=== PATIENT | male | born 1950 | race Caucasian/White ===

== ENCOUNTER → 2020-07-02 | Outpatient (CLI) | payer OTHER | LOC: SJCVC 13:12 | PROVIDERS: ATTEND Internal Medicine | DX: R94.31 Abnormal electrocardiogram [ECG] [EKG] (principal); R07.9 Chest pain, unspecified; I73.9 Peripheral vascular disease, unspecified; I10 Essential (primary) hypertension; E78.5 Hyperlipidemia, unspecified; F17.200 Nicotine dependence, unspecified, uncomplicated ==

== ENCOUNTER → 2020-07-07 | Outpatient (CLI) | payer OTHER | LOC: SJCVCIMAG 13:57 | PROVIDERS: ATTEND Internal Medicine | DX: R06.00 Dyspnea, unspecified (principal); R07.9 Chest pain, unspecified ==

== ENCOUNTER → 2020-07-08 | Outpatient (CLI) | payer OTHER | LOC: SJCVCIMAG 08:06 | PROVIDERS: ATTEND Internal Medicine | DX: I25.10 Atherosclerotic heart disease of native coronary artery without angina pectoris (principal); I77.9 Disorder of arteries and arterioles, unspecified; I73.9 Peripheral vascular disease, unspecified; M79.604 Pain in right leg; M79.605 Pain in left leg; I10 Essential (primary) hypertension; E78.5 Hyperlipidemia, unspecified; F17.210 Nicotine dependence, cigarettes, uncomplicated; Z79.82 Long term (current) use of aspirin; Z79.899 Other long term (current) drug therapy ==

== ENCOUNTER → 2020-07-21 | Outpatient (CLI) | payer OTHER | LOC: SJCVCIMAG 09:25 | PROVIDERS: ATTEND Internal Medicine | DX: I73.9 Peripheral vascular disease, unspecified (principal); M79.604 Pain in right leg; M79.605 Pain in left leg; F17.200 Nicotine dependence, unspecified, uncomplicated ==

== ENCOUNTER 2020-09-01 09:10 | Inpatient (IN) | payer OTHER ==
[~2020-09-01] VITALS: Ht 172.7 cm; Wt 57.3 kg
[2020-09-01 09:59] VITALS: BP 138/79
[2020-09-01 10:01] LABS: HEMATOCRIT 39.4 % (42.0-52.0); HEMOGLOBIN 13.3 gm/dL (14.0-18.0); MCH 33.9 pg (26.0-34.0); MCHC 33.7 g/dL (28.0-37.0); MCV 100.6 fL (80.0-100.0); RBC 3.92 mil/uL (4.50-6.00); RDW 13.5 % (10.5-14.5); WBC 6.6 thou/uL (4.0-11.0)
[2020-09-01 10:04] LABS: CALCIUM 8.8 mg/dL (8.5-10.1); CREATININE 0.9 mg/dL (0.7-1.3); POTASSIUM 4.2 mmol/L (3.5-5.1)
[2020-09-01] MEDS ORDERED: PROAIR HFA8.5 GM INH (10:18)
[2020-09-01] MEDS ORDERED: ASA81BEC PO (10:19)
[2020-09-01] MEDS ORDERED: NORVASC 2.5 MG2.5 M1 PO (10:19)
[2020-09-01] MEDS ORDERED: LIPITOR40 MG PO (10:20)
[2020-09-01] MEDS ORDERED: NORCO 10-325 T1 EACH PO (10:21)
[2020-09-01] MEDS ORDERED: IBUPROFEN 800800 M1 PO (10:22)
[2020-09-01] MEDS ORDERED: DESYREL150 MG PO (10:24)
[2020-09-01] MEDS ORDERED: ANORO ELLIPTA1 EACH INH (10:25)
[2020-09-01] MEDS ORDERED: ISOSORBIDE DINI30 MG PO ×2 (10:28→10:29)
--- NOTE | 2020-09-01 11:27 | EKG ---
[facility] [place] [address] ELECTROCARDIOGRAM REPORT Name: MARC GIFFORD Room #: [facility]#: [id number] Admission: 09/01/20 Attend Phys: Evans Ribeiro Discharge: Date of : 54 Report #: [id number] [facility] Test Date: 2020-09-01 Test Time: 10:31:56 Pat Name: MARC GIFFORD Department: Room: Gender: City Marshal: [place] : 1950 Requested By: Evans Ribeiro Order Number: [id number] MD: Corey Vital Measurements Intervals [place] Rate: 70 P: 74 IL: 129 QRS: 78 QRSD: 83 T: 58 QT: 406 QTc: 439 Interpretive Statements Sinus rhythm Probable left atrial enlargement Borderline low voltage, extremity leads Minimal ST elevation, anterior leads No previous ECG available for comparison Electronically Signed On 09-01-2020 11:27:16 RESTAURANT BUSSER by Corey Vital [email or web address] <ELECTRONICALLY SIGNED> By: Corey Vital MD, [facility] 09/01/20 1127 1031 1031 Corey Vital MD, FACC /EPI
[2020-09-01 14:04] LABS: HEMATOCRIT 36.7 % (42.0-52.0); HEMOGLOBIN 12.5 gm/dL (14.0-18.0); MCH 34.1 pg (26.0-34.0); MCV 100.3 fL (80.0-100.0); RBC 3.66 mil/uL (4.50-6.00); RDW 13.6 % (10.5-14.5); WBC 5.9 thou/uL (4.0-11.0)
[2020-09-01 14:16] LABS: APTT 26.8 Seconds (24.5-32.8); PROTIME 10.4 Seconds (9.3-11.4)
[2020-09-01 15:33] LABS: CALCIUM 8.6 mg/dL (8.5-10.1); CREATININE 0.8 mg/dL (0.7-1.3); POTASSIUM 3.9 mmol/L (3.5-5.1)
[2020-09-01 15:36] LABS: ALBUMIN 3.1 g/dL (3.4-5.0); TOTAL BILIRUBIN 0.3 mg/dL (0.2-1.0); TOTAL PROTEIN 6.7 g/dL (6.4-8.2)
[2020-09-01 15:58] LABS: FOLIC ACID 15.3 ng/mL (8.6-58.9)
--- NOTE | 2020-09-01 16:32 | NUR ---
1620 HEPARIN GTT STARTED AT 6.8ML/HR
[2020-09-01 20:00] VITALS: BP 146/66
[2020-09-01 20:44] VITALS: BP 146/66
[2020-09-01 23:29] LABS: URINE BILIRUBIN NEGATIVE (Negative); URINE BLOOD NEGATIVE (Negative); URINE CLARITY CLEAR; URINE COLOR YELLOW; URINE GLUCOSE-RANDOM* NEGATIVE (Negative); URINE KETONES NEGATIVE (Negative); URINE LEUKOCYTES-REFLEX NEGATIVE (Negative); URINE NITRITE-REFLEX NEGATIVE (Negative); URINE PROTEIN (DIPSTICK) NEGATIVE (Negative); URINE SPECIFIC GRAVITY <= 1.005 (1.005-1.035); URINE UROBILINOGEN 0.2 E.U./dl (0.2-1.0)
[2020-09-02 02:06] LABS: GLYCOHEMOGLOBIN (HGB A1C) 5.2 % (4.8-5.6)
--- NOTE | 2020-09-02 07:44 | EKG ---
[place] [address] [facility] [employer] [place] [address] ELECTROCARDIOGRAM REPORT Name: MARC GIFFORD Room #: 212-P ADM IN M.R.#: [id number] Admission: 09/01/20 Attend Phys: Evans Ribeiro Discharge: Date of : 54 Report #: [id number] [facility] Test Date: 2020-09-02 Test Time: 07:25:43 Pat Name: MARC GIFFORD Department: Room: 212 P Gender: M Early Intervention Specialist: GERRY : 1950 Requested By: Natalia Kraft Order Number: [id number] MD: Enrique Ho Measurements Intervals [place] Rate: 58 P: 75 VT: 124 QRS: 82 QRSD: 91 T: 58 QT: 426 QTc: 419 Interpretive Statements Sinus rhythm Atrial premature complex Borderline right axis deviation Borderline low voltage, extremity leads Poor R wave progression Baseline wander in lead(s) V5 Compared to ECG 09/01/2020 10:31:56 Atrial premature complex(es) now present Electronically Signed On 09-02-2020 7:44:28 GLASS CUTTER by Enrique Ho [email or web address] <ELECTRONICALLY SIGNED> By: Enrique Ho MD, [facility] 09/02/20 0744 4 4 Enrique Ho MD, [facility] /EPI
[2020-09-02 09:31] LABS: CHOLESTEROL 125 mg/dL (<200); HDL CHOLESTEROL 48 mg/dL (>40); LDL CHOLESTEROL 68 mg/dL (<100); TC:HDL 2.6 Ratio (Not establshd); TRIGLYCERIDE 46 mg/dL (<150); VLDL 9 mg/dL (<40)
[2020-09-02 10:15] VITALS: BP 93/59
[2020-09-02 12:00] VITALS: BP 113/75
--- NOTE | 2020-09-02 15:17 | NUR ---
ASSESSMENT: CM REVIEWED CHART AND SPOKE WITH PT. PT IS ALERT AND ORIENTED X4. PT WAS ADMITTED DUE TO CHEST PAIN AND HAD CARDIAC CATH WHICH REVEALED CRITICAL STENOSIS. PT IS SCHEDULED TO HAVE CABG ON 09/06. PT ALSO COMPLAINED OF ITCY RASH X3 WEEKS. PT REPORTS LIVING IN AN APT WITH HIS MOTHER. PT REPORTS NO STEPS TO ENTER OR ONCE INSIDE. PT REPORTS HE IS FULLY INDEPENDENT WITH ADLS AND AMBULATION. PT STATES HE HAS HAD NO HX OF HH OR POST ACUTE CARE. PT REPORTS NO DME AT HOME AND HAS NOT HAD THE NEED FOR IT. PT HAS HX OF ALCOHOL USE AND IS ON CIWA PROTOCOL BUT DENIES THE NEED FOR RESOURCES. PT STATES HIS PCP IS DR. DALLAS RIBERA. CM WILL CONTINUE TO FOLLOW TO ASSIST NEEDED.
--- NOTE | 2020-09-02 16:12 | NUR ---
PT ALERT AND ORIENTED IN AM. PT ON CONTACT PRECAUTIONS FOR SCABIES. PT AGREED TO SHOWER TO PUT MEDICATED OINTMENT ON WOUNDS. PT IS ON HEPARIN DRIP, AND BEGAN HEPARIN DOSING TO PREPARE FOR CABG ON 09/06/2020. PT NIECE BROUGHT HOME MEDS; RECONCILED HOME MEDS. CARDIAC ANGIOGRAPH CONDUCTED. CARDIAC DR REQUESTED BILATERAL BLOOD PRESSURES CONDUCTED TO RECORD TRENDS. POC: CONTINUE TO MONITOR PT'S SKIN 24 HOURS AFTER OINTMENT; MONITOR PT LAB VALUES FOR HEPARIN; PT IS RESTING COMFORTABLY. NO CONCERNS AT THIS TIME.
[2020-09-02 17:00] VITALS: BP 111/76
[2020-09-02 17:05] VITALS: BP 79/54
[2020-09-02 20:18] VITALS: BP 125/61
[2020-09-02 23:08] VITALS: BP 113/66; BP 118/63; BP 83/52
[2020-09-03 05:19] VITALS: BP 81/55
[2020-09-03 05:32] LABS: CALCIUM 8.5 mg/dL (8.5-10.1); CREATININE 0.8 mg/dL (0.7-1.3); MAGNESIUM 1.9 mg/dL (1.8-2.4); POTASSIUM 4.5 mmol/L (3.5-5.1)
[2020-09-03 05:35] LABS: ABSOLUTE NEUTROPHILS 3.5 thou/uL (1.4-8.2); BASOPHILS 0.7 % (0.0-2.0); EOSINOPHILS 6.6 % (0.0-3.0); HEMOGLOBIN 11.8 gm/dL (14.0-18.0); LYMPHOCYTES 32.5 % (24.0-44.0); MCH 34.3 pg (26.0-34.0); MCHC 33.8 g/dL (28.0-37.0); MCV 101.6 fL (80.0-100.0); MONOCYTES 7.8 % (1.0-8.0); PLATELET COUNT 290 thou/uL (150-400); POLYS 52.4 % (36.0-66.0); RBC 3.45 mil/uL (4.50-6.00); RDW 13.7 % (10.5-14.5); WBC 6.6 thou/uL (4.0-11.0)
[2020-09-03 08:05] LABS: PROTIME 10.2 Seconds (9.3-11.4)
--- NOTE | 2020-09-03 08:33 | NUR ---
ASSUMED CARE OF THE PATIENT AT 1900; AOX4/UP AD MEG TO TOILET; CONTACT PRECAUTIONS IN PLACE; C/O OF PAIN AND ITCHINESS MANAGED WITH PRN MEDICATIONS; SR ON THE MONITOR; HEPARIN GTT TITRATED ACCORDING TO PROTOCOL; PLAN IS FOR PATIENT TO CONTINUE CURRENT THERAPY AND ATTEND SCHEDULED CARDIOLOGY PROCEDURE FOR SUNDAY; WILL CONTINUE TO MONITOR AND FOLLOW POC
[2020-09-03 08:57] VITALS: BP 126/63
[2020-09-03 12:38] VITALS: BP 127/64
--- NOTE | 2020-09-03 15:19 | NUR ---
08:00 NPO FOR CAROTID PROCEDURE TODAY. WANTS TO DRINK BUT EXPLAINED HE CAN THIS AFTERNOON. CONSENT SIGNED AND WITNESSED. NO QUESTIONS ON WHAT THEY ARE DOING NOT ANSWERED. HIS ITCHING IS VASTLY IMPROVED POST BATHING AND CREAM RX. SELF AMBULATE SIN HIS ROOM TO RESTROOM. DENIES ANY CP, NO SOB EITHER. STEADY ON AMBULATION.
--- NOTE | 2020-09-03 15:22 | NUR ---
PT. BACK ON UNIT FROM HIS CAROTID INTERVENTION, THEY DID NO INTERVENTION TODAY FROM SUCH. SITE OF INSERTION FOR SUCH, C,D,I. VITAL SIGN'S ARE STABLE AND NO OOZING FROM MYNX SITE.
[2020-09-03 20:00] VITALS: BP 122/59
[2020-09-03 22:51] VITALS: BP 122/59
--- NOTE | 2020-09-04 00:59 | NUR ---
PT AOX4 WITH INTERMITTENT FORGETFULNESS. PT NOTED TO BE IRRITABLE, FUSSY AND DIFFICULT TO REDIRECT. PT REPORTS 6/10 BACK PAIN. PT DENIES SOB WHILE ON ROOM AIR. PT RECEIVING PRN PO NORCO Q4HR. PT ALSO RECEIVING PRN PO ATIVAN Q4HR FOR ANXIETY/AGITATION. PT TOLERATING PO INTAKE OF FLUIDS AND HEART HEALTHY DIET WITHOUT ISSUE. PT DENIES NAUSEA. PT VOIDING PER URINAL. PT CONTINUES TO REST IN BED AFTER 3HR BEDREST POSTOP INSTRUCTION. FREQUENT REPOSITIONING ENCOURAGED. PT RELUCTANT TO REPOSITIONING DUE TO REPORTS OF PAIN AND ANXIETY WITH PROCEDURE SITES. PT ASSESSED WITH FAINT RIGHT SIDED PERIPHERAL PULES, CAPILLARY REFILL LESS THAN 3EC IN ALL EXTREMITIES. PT CONTINUES WITH HEPARIN DRIP, APTT DRAWN AT 2100, HEPARIN RATE INCREASED AT 2238 PER HEPARIN PROTOCOL. PT ENCOURAGED TO NOTIFY STAFF FOR ALL NEEDS, CALL LIGHT WITHIN REACH, BED ALARM ON, BED LOCKED IN LOWEST POSITION, FREQUENT MONITORING WILL CONTINUE.
[2020-09-04 03:32] LABS: HEMATOCRIT 34.4 % (42.0-52.0); HEMOGLOBIN 11.7 gm/dL (14.0-18.0); MCH 34.3 pg (26.0-34.0); MCHC 34.1 g/dL (28.0-37.0); MCV 100.7 fL (80.0-100.0); RBC 3.42 mil/uL (4.50-6.00); RDW 13.4 % (10.5-14.5); WBC 6.6 thou/uL (4.0-11.0)
--- NOTE | 2020-09-04 04:01 | NUR ---
Assumed pt care at 0000. Pt is sleeping. No sign of distress noted in pt. No acute events noted. Scheduled meds administered to pt. Continue to monitor. No further needs at this time.
[2020-09-04 05:02] VITALS: BP 99/51
[2020-09-04 07:26] VITALS: BP 98/42
[2020-09-04 12:00] VITALS: BP 110/58
--- NOTE | 2020-09-04 13:23 | HC ---
[facility] [place] [address] CONSULTATION Name: MARC GIFFORD Room #: 212-P [facility] IN ..#: [id number] Admission: 09/01/20 Attend Phys: Evans Ribeiro Discharge: Date of : 54 Report #: [id number] THIS REPORT FOR: cc: Db Guthrie MD, [place] S. MD [place], Roxane S. DO ~ NEUROLOGY CONSULTATION HISTORY OF PRESENT ILLNESS: The patient is a 70-year-old male who came to the hospital with chest and left upper extremity pain. The patient tells me that 2 years ago, he had a stroke with right-sided weakness. The patient feels that he has done very well. 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 The only sequela he has is paraesthesia in the last two fingers of the right hand. The patient apparently had a mental status change today and a CT scan of the head was done. This shows subacute to chronic cortical and subcortical infarct involving the left frontal lobe and the left parietal convexity. The patient states he has no new stroke-like symptoms. Prior to admission, he was on aspirin daily. He states that with his stroke in 07/2018. He had 88% stenosis of the left internal carotid artery, for which he underwent endarterectomy and 68% stenosis of the right internal carotid artery, which is managed medically. PAST MEDICAL HISTORY: Hypertension, coronary artery disease, peripheral vascular disease, left hemispheric stroke, hyperlipidemia, insomnia, asthma/COPD. PAST SURGICAL HISTORY: Left carotid endarterectomy, coronary artery bypass surgery. MEDICATIONS: Aspirin 81 mg daily, atorvastatin 40 mg daily, trazodone 150 mg daily, famotidine 20 mg b.i.d., metoprolol 25 mg daily, nicotine patch 21 mg daily, vitamins, thiamine 100 mg daily. ALLERGIES: LISINOPRIL. PHYSICAL EXAMINATION: VITAL SIGNS: Temperature 36.3, pulse rate 78, respiratory rate 17, blood pressure 127/64, bedside pulse oximetry 93% on room air. NEUROLOGIC: Cranial nerves 2-12 are grossly intact. Motor exam demonstrates symmetrical strength in all 4 extremities with tone and bulk normal. The patient does have decreased fine movements in the right upper extremity. Reflexes are symmetrical throughout. Plantar responses are flexor bilaterally. Coordination reveals intact [id number]. The patient has decreased light touch on both the medial and lateral aspects of the right 3rd and 4th digits. [address] [address] CONSULTATION Name: MARC GIFFORD Room #: 212-P [facility]#: [id number] Admission: 09/01/20 Attend Phys: Evans Ribeiro Discharge: Date of : 54 Report #: [id number] LABORATORY WORK: Hematology: White blood cell count 6.6; hemoglobin 11.8; hematocrit 35; MCV 101.6; platelet count 290,000. Chemistry: Sodium 138, potassium 4.5, chloride 103, carbon dioxide 30, BUN 9, creatinine 0.8, glucose 102. Liver functions unremarkable. B12 586. Folate 15.3. Cholesterol 125, LDL cholesterol 68, HDL cholesterol 48. Serology COVID negative. IMPRESSION: The CT scan of the head shows subacute to chronic infarcts in the left frontal and left posterior parietal lobes. There is the possibility that these strokes are all chronic and related to the event in 2018. The patient would require an MRI of the head for further evaluation, but he may not be able to have this given the recent abdominal aortic stent placement. The patient has had a carotid Doppler study, this demonstrates 50-69% stenosis of the right internal carotid artery and normal flow through the left internal carotid artery. The patient is being seen by Cardiology if indicated, the patient may benefit from an echocardiogram. However, I suspect some type of study has been done as there are plans for coronary artery bypass graft on Sunday. The other option is to get his records from 2018 particularly any imaging studies that have been done so a comparison at least by report can be made between the most recent CT head and whatever type of imaging study would have been done 2 years ago. The patient continues to have paresthesias in the last two digits of the right hand and I would recommend an outpatient EMG to rule out an ulnar neuropathy. Thank you for your kind referral of the patient. <ELECTRONICALLY SIGNED> By: Alexandria Ventura DO 09/04/20 1323 1606 06 Alexandria Ventura DO /nt
[2020-09-04 16:00] VITALS: BP 102/57
--- NOTE | 2020-09-04 16:16 | HC ---
[facility] [place] [address] CONSULTATION Name: MARC GIFFORD Room #: 212-P [facility] IN .R.#: [id number] Admission: 09/01/20 Attend Phys: Evans Ribeiro Discharge: Date of : 54 Report #: [id number] THIS REPORT FOR: cc: Db Guthrie MD, Washington S. MD Geha, Daniel J. MD ~ DATE OF SERVICE: 09/03/2020 INFECTIOUS DISEASE CONSULTATION REASON FOR CONSULTATION: I was asked to evaluate concerning possible scabies, preoperative evaluation for coronary bypass grafting. HISTORY OF PRESENT ILLNESS: The patient is a 70-year-old with underlying history of coronary artery disease and carotid artery disease. He has underlying hypertension, presents with unstable angina. He has had a left carotid endarterectomy after a left hemispheric stroke in 2018. He was hospitalized, underwent angiography. He is scheduled to have his coronary bypass grafting in 3 days. His angina symptoms have subsided. He has had no cough or sputum production. He has had no nausea, vomiting or diarrhea. Imaging studies did show a large stomach. He is a smoker of cigarettes and has daily alcohol intake. Over the last 6 weeks, he has had a pruritic rash over his back, upper extremities and some on his lower extremities. Pretty much has spared his chest, abdomen and pelvic region. He has had a few lesions to his scalp, but again that area is marginal. He has had excoriated these lesions over the last 6 weeks. He has had no fever, chills or sweats. He was given antihistamines as well as trial of steroids without much benefit. Just prior to this, he was on lisinopril and was having allergic reaction to that with angioedema of his lips. He was switched to amlodipine around the time of this rash developed. He does not identify any papules or pustules. He just has an intense pruritus. He has had triggers before and he feels like it is different than that. 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 He did sleep on his hunting mate's couch where his hunting dog sleeps. He was concerned he may have picked up an infestation during that exposure. While hunting, he was extensively clothed and had no known tick embedding. He has had a few lesions to his scalp, but nothing in his galeana or his face. REVIEW OF SYSTEMS: A 14-point review was negative other than what has been described above. ALLERGIES: LIP SWELLING WITH LISINOPRIL. MEDICATIONS: Included albuterol, amlodipine, aspirin, Lipitor, hydrocodone, isosorbide, nitroglycerin, trazodone, Anoro Ellipta inhaler. [address] [address] CONSULTATION Name: CRISABBIEMARC S Room #: 212-P [facility] IN ..#: [id number] Admission: 09/01/20 Attend Phys: Evans Ribeiro Discharge: Date of : 54 Report #: [id number] PAST MEDICAL HISTORY: Hypertension, coronary artery disease, cerebrovascular disease, carotid artery disease with previous stroke. FAMILY HISTORY: Coronary artery disease. 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 Smoker of cigarettes and daily use of alcohol. . PHYSICAL EXAMINATION: VITAL SIGNS: Afebrile, hemodynamically stable. SKIN: He has multiple excoriations to his back, his upper extremities and some on his lower extremities. He has had many scars from previous excoriations in the same region. There was no skin lesions to his feet or his hands, his pelvic region, nothing along any belt line or neck line, none in the axillary region. Had a few lesions excoriated areas to his scalp. No papules, pustular lesions or cellulitis noted. No palpable adenopathy. HEENT: Eyes without scleral icterus or conjunctivitis. Mouth without mucositis. NECK: Supple. LUNGS: Clear. HEART: Regular, without murmur, gallop or rub. ABDOMEN: Soft and nontender with no hepatosplenomegaly or mass. EXTREMITIES: No peripheral edema. Pulses were palpable in all of his extremities. He had a patch from his angiogram in the left groin. GENITOURINARY: External genitalia without lesion. RECTAL: Not performed. NEUROLOGIC: Cranial nerves intact. Strength in his upper and lower extremities within normal limits and symmetric. LABORATORY STUDIES: Reviewed. IMAGING: Chest x-ray reviewed. IMPRESSION: 1. Significant left main and proximal right coronary artery stenosis with unstable angina that will require bypass grafting. He also has carotid artery disease. He has been treated for scabies as of yesterday with topical antiparasitic ointment. He does note that the pruritus is slightly better today. I am not convinced that scabies is the etiology of his pruritus in that I found no burrows or lesions within the typical areas of scabies and he has several lesions or excoriations to his scalp. Other ectoparasite infestation is possible such as mites; however, again the distribution is not consistent with such. Drug allergy is also a possibility. No evidence of autoimmune disease. 2. Cerebrovascular disease. 3. Subclavian stenosis. [facility] [address] [place] [address] CONSULTATION Name: MARC GIFFORD Room #: 212-P [facility] IN .R.#: [id number] Admission: 09/01/20 Attend Phys: Evans Ribeiro Discharge: Date of : 54 Report #: [id number] 4. Hypertension. 5. Tobacco and alcohol use. RECOMMENDATION: Would try off amlodipine as this is his newish drug exposure. We will treat for scabies with ivermectin. We will also treat with antihistamines. We will use topical steroid for the hot spots and have the patient ____ his nails down, wear gloves at night. Hopefully, we will gain better control of his pruritus before the end of the weekend. If no improvement, we will need skin biopsy. I have discussed the case with cardiovascular surgery. <ELECTRONICALLY SIGNED> By: Johnny Higgins MD 09/04/20 1616 1743 2118 Johnny Higgins MD /nt
[2020-09-04 19:00] VITALS: BP 108/67
[2020-09-05 04:00] VITALS: BP 96/50
--- NOTE | 2020-09-05 06:05 | NUR ---
ASSUMED CARE OF THE PATIENT AT 1900; AOX4/UP AD MEG TO TOILET; SR ON THE MONITOR; NO C/O OF CHEST PAIN; C/O OF BACK PAIN MANAGED WITH PRN MEDICATIONS; VSS/ASSESSMENTS CHARTED; HEPARIN GTT TITRATED PRN; PLAN IS FOR PATIENT TO HAVE CARDIOLOGY PROCEDURE SUNDAY; WILL CONTINUE TO MONITOR AND FOLLOW POC
[2020-09-05 07:47] VITALS: BP 105/56
[2020-09-05 11:20] VITALS: BP 105/67
--- NOTE | 2020-09-05 11:54 | NUR ---
Patient complained chest pain 6/10, on the left side, no short of breath. claiming the pain is zero now, and the pain lasted for [address] Lantigua paged, awaiting response.
[2020-09-05 11:56] VITALS: BP 98/65
--- NOTE | 2020-09-05 15:11 | NUR ---
Patient complained about chest pain 02/03 around 11am, Dr. Lantigua and NP. Edmonds is aware. Vital signs checked, patient claimed the chest pain last 5 minutes, no pain after the 5 minutes.
[2020-09-05 15:15] VITALS: BP 120/67
--- NOTE | 2020-09-05 15:56 | NUR ---
Patient asked to have Nitro in the patient, Dr. Del Cid paged for opinions, awaiting response.
--- NOTE | 2020-09-05 16:03 | NUR ---
Dr. Del Cid voiced, " it is ok with me" that the patient could have a bottle of Nitroglycerin in his room. The staff got a bottle of Nitroglycerin in the patient room and talked about how to administrate it, what to minitor for after taking the pill with the patient.
[2020-09-05 20:29] VITALS: BP 144/779
[2020-09-06 05:01] VITALS: BP 94/51
--- NOTE | 2020-09-06 08:56 | NUR ---
ASSESSMENTS CHARTED, MEDS CHARTED GIVEN. PATIENT SHOWERED TWICE WITH CHLOROHEXIDINE SOAP PRIOR TO SURGERY. NO CHEST PAIN DURING SHIFT. NPO SINCE MIDNIGHT. UP AT MEG IN ROOM. EXTREMITIES HAVE SPOT WOUNDS THAT ARE SCABBED, HIS BACK WOUNDS HAVE HEALED. HIS FAMILY BROUGHT HIM A LONG SLEEVE COTTON TSHIRT TO WEAR TO PREVENT HIM FROM SCRATCHING TO THE POINT OF BLEEDING. IV FLUIDS DC'D PRIOR TO LEAVING FOR SURGERY. FALL PRECAUTIONS IN PLACE DURING SHIFT.
[2020-09-06 12:24] LABS: RDW 13.4 % (10.5-14.5); WBC 5.3 thou/uL (4.0-11.0)
[2020-09-06 12:26] LABS: MCH 35.3 pg (26.0-34.0); MCHC 34.8 g/dL (28.0-37.0); MCV 101.3 fL (80.0-100.0); RBC 1.95 mil/uL (4.50-6.00)
[2020-09-06 12:31] LABS: HEMATOCRIT 19.8 % (42.0-52.0); HEMOGLOBIN 6.9 gm/dL (14.0-18.0)
[2020-09-06 12:44] LABS: APTT 33.6 Seconds (24.5-32.8); FIBRINOGEN 162.9 mg/dL (210-360); PROTIME 16.1 Seconds (9.3-11.4)
[2020-09-06 13:04] LABS: INR 1.6
[2020-09-06 13:17] LABS: POC BE 5 mmol/L (-2.0 to +3.0); POC CA IONIZED 4.3 mg/dL (4.5-5.3); POC GLUCOSE 118 mg/dL (70-99); POC HCO3 29.1 mmol/L (22.0-26.0); POC HEMOGLOBIN 6.8 g/dL (14.0-18.0); POC POTASSIUM 4.8 mmol/L (3.5-5.1); POC SODIUM 140 mmol/L (136-145); POC pCO2 42.1 mmHg (35.0-45.0); POC pH 7.447 (7.360-7.450)
[2020-09-06 13:17] LABS: POC BE 6 mmol/L (-2.0 to +3.0); POC CA IONIZED 4.7 mg/dL (4.5-5.3); POC GLUCOSE 96 mg/dL (70-99); POC HEMOGLOBIN 10.9 g/dL (14.0-18.0); POC POTASSIUM 3.6 mmol/L (3.5-5.1); POC SODIUM 138 mmol/L (136-145); POC pCO2 42.2 mmHg (35.0-45.0); POC pH 7.461 (7.360-7.450)
[2020-09-06 13:17] LABS: POC BE 7 mmol/L (-2.0 to +3.0); POC CA IONIZED 4.2 mg/dL (4.5-5.3); POC GLUCOSE 114 mg/dL (70-99); POC HCO3 29.9 mmol/L (22.0-26.0); POC HEMOGLOBIN 7.8 g/dL (14.0-18.0); POC POTASSIUM 4.5 mmol/L (3.5-5.1); POC SODIUM 138 mmol/L (136-145); POC pCO2 35.2 mmHg (35.0-45.0); POC pH 7.537 (7.360-7.450)
[2020-09-06 13:17] LABS: POC BE 6 mmol/L (-2.0 to +3.0); POC CA IONIZED 4.6 mg/dL (4.5-5.3); POC GLUCOSE 110 mg/dL (70-99); POC HCO3 30.4 mmol/L (22.0-26.0); POC HEMOGLOBIN 10.2 g/dL (14.0-18.0); POC POTASSIUM 3.9 mmol/L (3.5-5.1); POC SODIUM 137 mmol/L (136-145); POC pCO2 47.5 mmHg (35.0-45.0); POC pH 7.414 (7.360-7.450)
[2020-09-06 13:17] LABS: POC BE 1 mmol/L (-2.0 to +3.0); POC GLUCOSE 104 mg/dL (70-99); POC HCO3 25.2 mmol/L (22.0-26.0); POC HEMOGLOBIN 8.5 g/dL (14.0-18.0); POC POTASSIUM 3.9 mmol/L (3.5-5.1); POC SODIUM 140 mmol/L (136-145); POC pCO2 39.1 mmHg (35.0-45.0); POC pH 7.417 (7.360-7.450)
[2020-09-06 13:17] LABS: POC BE 7 mmol/L (-2.0 to +3.0); POC GLUCOSE 106 mg/dL (70-99); POC HCO3 29.7 mmol/L (22.0-26.0); POC HEMOGLOBIN 8.5 g/dL (14.0-18.0); POC POTASSIUM 4.4 mmol/L (3.5-5.1); POC SODIUM 137 mmol/L (136-145); POC pCO2 33.7 mmHg (35.0-45.0); POC pH 7.553 (7.360-7.450)
[2020-09-06 13:17] LABS: POC BE 2 mmol/L (-2.0 to +3.0); POC CA IONIZED 5.3 mg/dL (4.5-5.3); POC GLUCOSE 114 mg/dL (70-99); POC HEMOGLOBIN 6.8 g/dL (14.0-18.0); POC POTASSIUM 4.3 mmol/L (3.5-5.1); POC SODIUM 139 mmol/L (136-145); POC pCO2 37.2 mmHg (35.0-45.0); POC pH 7.452 (7.360-7.450)
[2020-09-06 14:13] LABS: HEMATOCRIT 25.5 % (42.0-52.0)
[2020-09-06 14:25] LABS: HCO3 23.5 mmol/L (22.0-26.0); PO2 VENOUS 44.8 mmHg (35.0-45.0)
[2020-09-06 14:27] LABS: POTASSIUM 4.1 mmol/L (3.5-5.1)
--- NOTE | 2020-09-06 14:30 | EKG ---
[address] [place] [address] ELECTROCARDIOGRAM REPORT Name: MARC GIFFORD Room #: 248-P ADM IN M.R.#: [id number] Admission: 09/01/20 Attend Phys: Evans Ribeiro Discharge: Date of : 54 Report #: [id number] [facility] Test Date: 2020-09-06 Test Time: 14:10:00 Pat Name: MARC GIFFORD Department: Room: 248 P Gender: M Strategic Partnership Specialist: Radha GOMEZ : 1950 Requested By: Tien Echevarria Order Number: [id number] MD: Corey Vital Measurements Intervals [place] Rate: 79 P: 82 TN: 132 QRS: 82 QRSD: 84 T: 49 QT: 409 QTc: 469 Interpretive Statements Sinus rhythm Borderline right axis deviation Borderline low voltage, extremity leads Compared to ECG 09/02/2020 07:25:43 Atrial premature complex(es) no longer present Poor R-wave progression no longer present Electronically Signed On 09-06-2020 14:30:09 ENVIRONMENTAL TECH by Corey Vital [email or web address] <ELECTRONICALLY SIGNED> By: Corey Vital MD, FACC 09/06/20 1430 1410 1410 Corey Vital MD, FAC /EPI
[2020-09-06 14:33] LABS: BE(vivo) 0.7 mmol/L (-2 to +3); HCO3 27.8 mmol/L (22.0-26.0); PCO2 58.2 mmHg (35.0-45.0); PO2 98.7 mmHg (80.0-100.0); pH 7.297 (7.360-7.450); sO2 96.7 % (92.0-98.0)
[2020-09-06 14:34] LABS: HEMOGLOBIN 8.6 gm/dL (14.0-18.0); MCH 34.2 pg (26.0-34.0); MCHC 33.7 g/dL (28.0-37.0); MCV 101.6 fL (80.0-100.0); RBC 2.51 mil/uL (4.50-6.00); RDW 13.4 % (10.5-14.5); WBC 7.8 thou/uL (4.0-11.0)
[2020-09-06 14:45] LABS: CALCIUM 8.5 mg/dL (8.5-10.1); CREATININE 0.6 mg/dL (0.7-1.3); MAGNESIUM 2.1 mg/dL (1.8-2.4)
[2020-09-06 14:54] LABS: APTT 30.5 Seconds (24.5-32.8); INR 1.2; PROTIME 12.2 Seconds (9.3-11.4)
--- NOTE | 2020-09-06 16:37 | NUR ---
PT ARRIVED FROM OR TO ICU AT 1445. PT WAS ACCOMPANIED BY OR STAFF. PT NOT ON ANY DRIPS ON ARRIVAL. PT WAS CONNECTED TO ICU MONITOR AND VIGILANT MONITOR. SWAN PLACED AT 55CM. PT HAS RIGHT RADIAL AND RIGHT FEMORAL ARTERIAL LINE. BRAIR HUGGER PLACED. FIRST ABG DRAWN. DR. HARDY AND EVA LEO AT BEDSIDE. CONTINUE TO MONITOR.
[2020-09-06 16:56] LABS: BE(vivo) 1.9 mmol/L (-2 to +3); HCO3 27.2 mmol/L (22.0-26.0); PCO2 45.8 mmHg (35.0-45.0); PO2 81.2 mmHg (80.0-100.0); pH 7.391 (7.360-7.450); sO2 95.8 % (92.0-98.0)
[2020-09-06 17:29] LABS: BE(vivo) -1.5 mmol/L (-2 to +3); HCO3 25.6 mmol/L (22.0-26.0); PCO2 56.2 mmHg (35.0-45.0); PO2 74.7 mmHg (80.0-100.0); pH 7.277 (7.360-7.450); sO2 92.9 % (92.0-98.0)
[2020-09-06 18:30] LABS: HEMATOCRIT 25.9 % (42.0-52.0); HEMOGLOBIN 8.7 gm/dL (14.0-18.0); MCH 34.4 pg (26.0-34.0); MCHC 33.7 g/dL (28.0-37.0); MCV 102.2 fL (80.0-100.0); RBC 2.54 mil/uL (4.50-6.00); RDW 13.5 % (10.5-14.5); WBC 10.8 thou/uL (4.0-11.0)
[2020-09-06 18:35] LABS: CALCIUM 8.2 mg/dL (8.5-10.1); CREATININE 0.8 mg/dL (0.7-1.3); POTASSIUM 4.1 mmol/L (3.5-5.1)
[2020-09-06 18:36] LABS: MAGNESIUM 1.9 mg/dL (1.8-2.4)
[2020-09-06 18:51] LABS: BE(vivo) -1.2 mmol/L (-2 to +3); HCO3 25.3 mmol/L (22.0-26.0); PCO2 50.9 mmHg (35.0-45.0); PO2 74.5 mmHg (80.0-100.0); pH 7.314 (7.360-7.450); sO2 93.6 % (92.0-98.0)
--- NOTE | 2020-09-06 19:29 | NUR ---
ABG RESULT AND NIF WAS INFORMED TO . PT EXTUBATION PER DR. HARDY ORDER AT 1733. PT COMPLAINING OF PAIN AND KICKING HIS LOWER EXTREMITIES. PT WAS GIVEN 25MCG OF PAIN. PT SEEM RESTLESS AND AGITATED DESPITE OF THE PAIN TREATMENT- ORDER FOR HALDOL WAS RECEIVED.
--- NOTE | 2020-09-06 20:20 | NUR ---
Care assumed at 1930; during report pt extremely restless, kicking legs out bottom of bed, taking off gown and monitor wires. Dr. Del Cid notified by day shift RN at approximately 1850 and pt given Haldol and Fentanyl for pain and aggitation. Combination has worked well; pt has been able to rest, remains oriented x4, still has periods of restlessness but able to calm down with therapeutic touch and communication. Pt's niece, Dina Salas, was updated by day shift RN before RN left. Mediastinal x2 and left plural x1 patent to -20 cmH2O without air leak or crepitus. Urine output approximately 30 cc/hr, clear yellow. All drsg clean, dry, and intact with wound vac patent and functioning. VS within acceptable parameters with Amiodorone infusing at 0.69 mg/min. Taking clear liquids without nausea
[2020-09-06 23:41] VITALS: BP 113/92
[2020-09-07] VITALS (48 sets, daily range): BP systolic 66–179; BP diastolic 44–88
--- NOTE | 2020-09-07 00:20 | NUR ---
ABP 86-96 systolic with MAP 46-50, all other hemodynmic parameters within limits. 5% albumin given with ASBP now up to 102. Urine output approximately 40 cc/hr. Pt awake, drowsy, oriented x3. Fentanyl IVP for sternal pain approximately q 2 hours prn which takes pain from 10 to 3.
--- NOTE | 2020-09-07 02:38 | NUR ---
ABP running low again at 0200 check, urine output decreased slightly, second 5% albumin hung. ABP responding.
--- NOTE | 2020-09-07 03:53 | NUR ---
At 0300 pt yelling out for pain medication. Pt awake, alert, oriented x3. Minimal drainage in chest tubes, all drsgs dry and intact. ABP (92/27) and SVR (410) remain low but other hemodynamics with acceptable parameters. Urine output has decreased to 20 cc/hr. 4th bottle of 5% albumin given. Pt continues to moan, c/o severe sternal pain despite repositioning. Pain med given at 0340 but only 25 mcg given because of low BP and urine output. Foly irrigated with 10 cc NS, no obstruction or leakage, 10 cc returned immediately. O2 sat dropped to 90%, O2 increased to 5 L., Sat now 99%, respirations 12. Continuing to monitor.
[2020-09-07 05:25] LABS: HEMATOCRIT 22.2 % (42.0-52.0); HEMOGLOBIN 7.5 gm/dL (14.0-18.0); MCH 34.3 pg (26.0-34.0); MCHC 33.7 g/dL (28.0-37.0); MCV 101.7 fL (80.0-100.0); RBC 2.18 mil/uL (4.50-6.00); RDW 13.6 % (10.5-14.5); WBC 6.5 thou/uL (4.0-11.0)
[2020-09-07 05:31] LABS: CALCIUM 7.7 mg/dL (8.5-10.1); CREATININE 0.9 mg/dL (0.7-1.3); MAGNESIUM 1.9 mg/dL (1.8-2.4); POTASSIUM 4.4 mmol/L (3.5-5.1)
[2020-09-07 05:48] LABS: INR 1.1; PROTIME 11.6 Seconds (9.3-11.4)
--- NOTE | 2020-09-07 06:36 | NUR ---
Pt progressing toward goals. Pain controlled initially with Fentanyl, but have changed pt over to oral pain med. Pt always rates pain 9-10 when asked but he has been able to sleep intermittently and do coughing and deep breathing q 2 hours. Blood pressure low at times through night though pt asymptomatic; 5% albumin 250 cc given x4 over course of this shift with positive effect on BP. Urine output has been marginal, only 225 cc out this shift. Mediastinal CT remains patent to -20 cmH2O, 145 cc out this shift; left plural remains patent to -20 cmH2O, 140 cc out this shift. Dina Maher, updated at 0600.
--- NOTE | 2020-09-07 10:13 | EKG ---
[place] [address] [facility] [place] [address] ELECTROCARDIOGRAM REPORT Name: MARC GIFFORD Room #: 248-P ADM IN M.R.#: [id number] Admission: 09/01/20 Attend Phys: Evans Ribeiro Discharge: Date of : 54 Report #: [id number] [facility] Test Date: 2020-09-07 Test Time: 07:17:14 Pat Name: MARC GIFFORD Department: Room: 248 P Gender: M Buzzsaw Operator Helper: GERRY : 1950 Requested By: Tien Echevarria Order Number: [id number] MD: Corey Vital Measurements Intervals [place] Rate: 78 P: 73 ME: 124 QRS: 65 QRSD: 85 T: 21 QT: 387 QTc: 441 Interpretive Statements Sinus rhythm Low voltage, extremity leads Compared to ECG 09/06/2020 14:10:00 No significant changes Electronically Signed On 09-07-2020 10:12:52 CODING DIRECTOR by Corey Vital [email or web address] <ELECTRONICALLY SIGNED> By: Corey Vital MD, [facility] 09/07/20 1012 0717 6 Corey Vital MD, FACC /EPI
[2020-09-07 13:52] LABS: POC BE 5 mmol/L (-2.0 to +3.0); POC CA IONIZED 4.2 mg/dL (4.5-5.3); POC GLUCOSE 124 mg/dL (70-99); POC HCO3 28.5 mmol/L (22.0-26.0); POC HEMOGLOBIN 7.1 g/dL (14.0-18.0); POC SODIUM 143 mmol/L (136-145); POC pCO2 38.3 mmHg (35.0-45.0)
--- NOTE | 2020-09-07 15:19 | NUR ---
RIGHT RADIAL AND FEMORAL ART LINE OUT AT 1030 AM. URINE OUTPUT IMPROVED MAKING 30CC/HR. SWAN MIGUEL ANGEL PULLED OUT. PT UP TO CHAIR BY OT AND NURSING STAFF AT 1400.
--- NOTE | 2020-09-07 16:51 | NUR ---
MEDIASTINAL CHEST TUBES OUT. PACER WIRES CAPPED.
--- NOTE | 2020-09-07 19:18 | NUR ---
PT PAN JONES UPDATED ON PT CONDITION TODAY. HER QUESTIONS WERE ANSWERED.
[2020-09-08] VITALS (40 sets, daily range): BP systolic 92–162; BP diastolic 56–88
--- NOTE | 2020-09-08 05:58 | NUR ---
ASSMED PT CARE AT 1900. VSS. PT A&0X4. PT RESTED WELL OVER NOC. PAIN MANAGED PER OCT. POST OP DRESSING SITES REMAINS CDI. PLUERAL CHEST TUBE INTACT. PT HAD 320ML OUT FROM CHEST TUBE THIS SHIFT. GREAT U/O OF 750ML THIS SHIFT WELL. PT IS STABLE, RECOVERING FROM SURGERY WELL. UPDATED PT PAN JONES YESTERDAY AT 2123. PT PROGRESSNG WELL TOWARDS POC GOALS.
[2020-09-08 06:04] LABS: HEMATOCRIT 25.2 % (42.0-52.0); HEMOGLOBIN 8.6 gm/dL (14.0-18.0); MCH 34.2 pg (26.0-34.0); MCHC 34.3 g/dL (28.0-37.0); MCV 99.6 fL (80.0-100.0); RBC 2.53 mil/uL (4.50-6.00); RDW 13.3 % (10.5-14.5); WBC 11.2 thou/uL (4.0-11.0)
[2020-09-08 07:13] LABS: CALCIUM 8.7 mg/dL (8.5-10.1); CREATININE 0.7 mg/dL (0.7-1.3); POTASSIUM 4.2 mmol/L (3.5-5.1)
--- NOTE | 2020-09-08 11:00 | NUR ---
1054- Nurse updated patients neice/spokes person, on patient status today and plan of care. Patient working with physical therapy and ambulating in the hallways. Plan of care is to remove right jugular introducer, and monitor for urine output as merrill was discontinued at 1044.
--- NOTE | 2020-09-08 14:02 | NUR ---
1400- Patient had a moderate bowel movement. He got up to the bedside commode with the assistance of two staff members. He tolerated getting out of bed and getting back into bed quite well. Physical therapy to visit him this afternoon and nurse to provide pain medication prior.
--- NOTE | 2020-09-08 16:39 | NUR ---
Case discussed with the care team. Pt is progressing postop day 2 s/p CABGx5. He is up to the chair today and working with PT/OT. Chest tube in place and on 5liters of o2. Possible tx out of the ICU soon. Nursing is updating his niece Dina. Will continue to follow for possible HH referral at [facility].
--- NOTE | 2020-09-08 17:50 | NUR ---
Patient progressing towards plan of care as evidenced by removal of lines/tubes today, increased activity and tolerance to activity. Unable to wean down nasal cannula oxygen as patient desaturates into upper 80% when lowered. With ambulation, requires 4L per nasal cannula. Nurse to continue to work with patient on incentive spirometer.
--- NOTE | 2020-09-08 21:42 | NUR ---
Pt's niece, Suma, updated on pt status and that pt may move to CCU during the night.
[2020-09-09] VITALS (12 sets, daily range): BP systolic 107–159; BP diastolic 57–84
--- NOTE | 2020-09-09 06:27 | NUR ---
Pt to transfer to 209 when CCU nurse ready for report. Pt currently up in w/c, O2 at 4 L for activity. Chest x-ray done. Monitor remains sinus rhythm without ectopy. Voiding without difficulty. Pt's niece, Suma, called and updated on pt status at 0610 and informed of new room number.
--- NOTE | 2020-09-09 08:45 | NUR ---
0700 RECIEVED TRANSFER FROM ICU PER WHEELCHAIR. ORIENTED TO ROOM. ASSISTED TO BED. PATIENT WANTING TO WALK. REASSURED THAT WHEN BREAKFAST AND VITAL SIGNS WERE DONE ELECTRICAL PLUMBING SUPERVISOR WOULD WALK WITH HIM. NOTIFIED DAY RN AND ELECTRICAL PLUMBING SUPERVISOR. CONTINUE TO ASSES.
--- NOTE | 2020-09-09 18:32 | NUR ---
ASSUMED CARE OF PT AT SHIFT CHANGE. ASSESSMENTS CHARTED. MEDS GIVEN PER OCT. PT A&OX4, NO C/O PAIN. PT WALKED SEVERAL TIME IN [place] WITH STAFF AND PT. WILL CONTINUE TO MONITOR AND FOLLOW POC.
[2020-09-10 04:00] VITALS: BP 86/69
[2020-09-10 05:28] LABS: HEMATOCRIT 25.5 % (42.0-52.0); HEMOGLOBIN 8.6 gm/dL (14.0-18.0); MCH 34.4 pg (26.0-34.0); MCHC 33.9 g/dL (28.0-37.0); MCV 101.6 fL (80.0-100.0); RBC 2.51 mil/uL (4.50-6.00); WBC 7.6 thou/uL (4.0-11.0)
[2020-09-10 05:45] LABS: CALCIUM 8.6 mg/dL (8.5-10.1); CREATININE 0.8 mg/dL (0.7-1.3); POTASSIUM 3.3 mmol/L (3.5-5.1)
--- NOTE | 2020-09-10 06:30 | NUR ---
SLEPT MOST OF SHIFT. REPOSITIONED SELF IN BED NEEDED. NO PRESENT COMPLAINTS OF PAIN AT THIS TIME. WORKING ON GOALS AND PLAN OF CARE FOR NOC. UP IN HALLS WITH STANDBY ASSIST. STEADY GAIT. WOUND VAC REMAINS TO MIDSTERNAL INCISION. CONTINUE TO ASSES. PROGRESSING SLOWLY TOWARDS DISCHARGE GOALS.
[2020-09-10 06:34] VITALS: BP 101/59
--- NOTE | 2020-09-10 07:44 | EKG ---
[place] [address] [facility] [address] [place] [address] ELECTROCARDIOGRAM REPORT Name: MARC GIFFORD Room #: 209-P ADM IN M.R.#: [id number] Admission: 09/01/20 Attend Phys: Evans Ribeiro Discharge: Date of : 54 Report #: [id number] [facility] Test Date: 2020-09-10 Test Time: 07:26:33 Pat Name: MARC GIFFORD Department: Room: 209 P Gender: M [employer] Dies: GERRY : 1950 Requested By: Tien Echevarria Order Number: [id number] MD: Enrique Ho Measurements Intervals [place] Rate: 79 P: 79 WI: 125 QRS: 82 QRSD: 86 T: 14 QT: 407 QTc: 467 Interpretive Statements Sinus rhythm Low voltage, extremity leads Abnormal R-wave progression, late transition Compared to ECG 09/07/2020 07:17:14 No significant change was found Electronically Signed On 09-10-2020 7:44:32 SNAKER TRACTOR DRIVER by Enrique Ho [email or web address] <ELECTRONICALLY SIGNED> By: Enrique Ho MD, [facility] 09/10/20 0744 5 5 Enrique Ho MD, [facility] /EPI
[2020-09-10 07:45] VITALS: BP 100/70
[2020-09-10 11:25] VITALS: BP 133/62
[2020-09-10] MEDS ORDERED: FERREX 150 PLU1 EAC1 PO (14:06)
[2020-09-10] MEDS ORDERED: METOPROLOL TART25 MG PO (14:07)
[2020-09-10] MEDS ORDERED: MUPIROCIN22 GM NASAL (14:08)
[2020-09-10 16:40] VITALS: BP 144/73
--- NOTE | 2020-09-10 17:39 | NUR ---
Pt is doing well with therapy s/p cabg. Possible dc home 1-2 days but had event with low bp and sob this am. Goal is home with outpt f/u;however should the pt need referral and be dc ready this weekend. Please send facesheet,h/p, dc summary and instructions to [facility] [phone] fax and notify their oncall RN [phone].
--- NOTE | 2020-09-10 19:34 | NUR ---
ASSUMED CARE PT SHIFT CHANGE. ASSESSMNETS CHARTED.MEDS GIVEN PER OCT. VSS. C/O PAIN MANAGED WITH PO PAIN MEDS. O2 SATS WNL 1L O2. CONT PULSE OX CONNECTED. STERNAL INCISION REMAINS CDI TO PREVANA WOUND VAC. PT UP WITH PHYS THERAPY AND CARD REHAB TOLERATING VERY WELL. PLAN FOR POSSIBLE DC TOMORROW. DENIES NEEDS. CONTINUING TO MONITOR AND FOLLOW POC.
[2020-09-10 19:40] VITALS: BP 126/60
--- NOTE | 2020-09-11 04:24 | NUR ---
Assumed pt care at 1900. Pt is alert and oriented. No sign of distress noted. Woun vac in place. Pain med administered upon request. Pt walks the hallway twice. Pt is on oxygen. Vital signs stable. Assessment completed and documented. Scheduled meds administered to pt. Pt is stable through the night. No acute events. Continue to monitor. No further needs at this time.
--- NOTE | 2020-09-11 04:30 | NUR ---
Assumed pt care at 1900. Pt is alert and oriented. No sign of distress noted in pt. Pt is resting comfortably in bed. Elevated blood pressure noted with vital. Physician aware, orders received. Pt is stable. Fall precaution in place. Assessment completed and documented. Scheduled meds administered to pt. No acute events overnight. Continue to monitor. No further needs at this time.
--- NOTE | 2020-09-11 04:34 | NUR ---
Assumed pt care at 1900. Pt is alert and oriented. No sign of distress noted in pt. Fall precaution in place. Wound vac in place. Pain med administered upon request. Pt ambulated the hallway. Assessment completed and documented. Scheduled meds administered to pt. No acute events overnight. Continue to monitor. No further needs at this time.
[2020-09-11 04:50] VITALS: BP 121/67
[2020-09-11 08:10] VITALS: BP 94/53
[2020-09-11 12:20] VITALS: BP 119/54
[2020-09-11 14:26] VITALS: BP 119/54
--- NOTE | 2020-09-11 15:24 | NUR ---
ASSUMED CARE OF PT AT SHIFT CHANGE. ASSESSMENTS CHARTED. MEDS GIVEN PER OCT. PT A&O4, NO C/O PAIN, NEEDS O2 WITH ACTIVITY D/T DESATTING. DISCHARGE ORDERS AND INSTRUCTIONS COMPLETE. IV AND TELE DC'D. HOME O2 DELIVERY SET UP THROUGH [employer]. STAFF TOOK PT OUT VIA WHEELCHAIR TO NIECE WAITING IN CAR.
--- NOTE | 2020-09-12 09:20 | HC ---
[facility] [place] [address] CONSULTATION Name: MARC GIFFORD Room #: 209-P [facility] IN .R.#: [id number] Admission: 09/01/20 Attend Phys: Evans Ribeiro Discharge: 09/11/20 Date of : 54 Report #: [id number] THIS REPORT FOR: cc: Db Guthrie MD, [place] S. MD Forman, John M. MD ~ DATE OF SERVICE: 09/01/2020 We were asked by Dr. Ribeiro to see the patient. HISTORY OF PRESENT ILLNESS: The patient is a 70-year-old with coronary artery disease. The patient presents with rest angina that happened on lasting overnight to . Since that time, the patient has had only intermittent chest pain. The patient does state that he has had episodes of angina previously and in particular had chest pain when mowing the lawn over the summer. Coronary angiography today shows important coronary disease. The coronaries are highly calcified and the left main has an 80% stenosis. LAD in the mid portion has a 60% lesion and first diagonal has a 99% lesion. Right coronary also has a 99% lesion and the patient is right dominant. Left ventricular function is satisfactory by previous cardiac echo with ejection fraction 65% and no obvious important valvular dysfunction. PAST MEDICAL HISTORY: The patient states that he is treated for hypertension. The patient has a history of coronary artery disease. He had a left carotid endarterectomy after a left hemispheric stroke in 2018. The residual is only some weakness of the right fourth and fifth digits. MEDICATIONS AT HOME: Includes albuterol inhalers, amlodipine, aspirin, Lipitor, hydrocodone, isosorbide, nitroglycerin, trazodone and Anoro Ellipta inhaler. ALLERGIES: The patient states he has LIP SWELLING WITH LISINOPRIL. 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 He is a longtime smoker and he consumes 6-12 beers per day. REVIEW OF SYSTEMS: GENERAL: The patient denies fever, weight loss. EYES: No vision change. HEENT: No headaches. No nasal discharge. Does have some chronic hearing loss. RESPIRATORY: Denies dyspnea. Denies cough. CORONARY: As mentioned, history of exertional angina and more recently a rest angina. [facility] [address] [place] [address] CONSULTATION Name: MARC GIFFORD Room #: 209-P [facility] IN .R.#: [id number] Admission: 09/01/20 Attend Phys: Evans Ribeiro Discharge: 09/11/20 Date of : 54 Report #: [id number] GASTROINTESTINAL: Denies nausea, vomiting, diarrhea, blood in stools. GENITOURINARY: Denies urgency, frequency, blood in urine. MUSCULOSKELETAL: Denies bone or joint problems. SKIN: Denies rash or infection. NEUROLOGIC: Has some paresthesias in the feet and claims he takes some gabapentin for this. ENDOCRINE: Denies tremor, denies goiter. FAMILY HISTORY: Positive for coronary artery disease. The patient's mother states that most of the male members of the family have had coronary problems and/or bypass surgery. PHYSICAL EXAMINATION: CONSTITUTIONAL: The patient is lying in bed after his catheterization, seems comfortable. VITAL SIGNS: Blood pressure 122/70, heart rate 67. HEENT: No scleral icterus, no arcus. NECK: Bilateral cervical bruits are audible. CHEST: Clear to auscultation. HEART: Rhythm regular, no murmur. Heart tones are reduced. ABDOMEN: Soft, no mass. EXTREMITIES: No clubbing, cyanosis or edema. SKIN: No rash or infection. VASCULAR: 2+ popliteal pulses bilaterally, 2 to 3+ posterior tibial pulses, 2+ dorsalis pedis on the right. I do not feel dorsalis pedis on the left. No obvious saphenous vein problems. PSYCHIATRIC: Oriented x 3, somewhat elevated affect, but overall not confrontational. ASSESSMENT: The patient has important left main and proximal right coronary artery lesions. I have reviewed the case with Dr. Ribeiro. We plan for coronary artery bypass surgery. Because of the intense calcification, I would like to check a CT scan of the chest to assess the aorta. Risks and details of coronary bypass surgery were discussed with the patient and his mother. Risks include but are not limited to bleeding, infection, anesthesia risks, heart and lung problems, stroke and . Options and alternatives were reviewed. The patient understands all of this and wishes to proceed. We will make arrangements for surgery. First available day looks like Sunday. Thank you for the consult. <ELECTRONICALLY SIGNED> By: Sly Del Cid MD 09/12/20 0920 1640 [id number] Sly Del Cid MD /nt
--- NOTE | 2020-09-12 09:20 | O ---
[facility] [place] [address] [place] [address] OPERATIVE REPORT Name: MARC GIFFORD Room #: 209-P [facility] IN M.R.#: [id number] Admission: 09/01/20 Attend Phys: Evans Ribeiro Discharge: 09/11/20 Date of : 54 Report #: [id number] THIS REPORT FOR: cc: Db Guthrie MD, Washington S. MD Forman, John M. MD ~ DATE OF SERVICE: 09/06/2020 PREOPERATIVE DIAGNOSIS: Coronary artery disease. POSTOPERATIVE DIAGNOSIS: Coronary artery disease. OPERATION: Coronary artery bypass x 5 including left internal mammary artery to left anterior descending artery, saphenous vein to diagonal 1 and ramus and saphenous vein to posterior descending and posterolateral branches of the right coronary artery and insertion of right femoral arterial line and endoscopic harvest, left greater saphenous vein. SURGEON: Sly Del Cid MD UTILIZATION SUPERVISOR: EVA Doe. ANESTHESIA: General. INDICATIONS: The patient is a 70-year-old seen for Dr. Ribeiro. The patient has unstable angina. Catheterization demonstrates 80% left main coronary as well as a 99% right coronary lesions. Left ventricular function is satisfactory. FINDINGS AND TECHNIQUE: After general anesthesia was established, saphenous vein was harvested using an endoscopic approach and prepared to use as a conduit. Exposure was obtained through median sternotomy. Left internal mammary artery was harvested from chest wall. Pericardial well was made. Cannulation sutures were placed. Heparin was given. Aorta was cannulated. Right atrium was cannulated. Cardioplegia needle was positioned in the aortic root. Retrograde cardioplegic catheter was placed in coronary sinus. Cardiopulmonary bypass was established. The aorta was cross clamped. Antegrade and retrograde cardioplegia were given. Ice was poured in the pericardial well. The heart was stopped. During electromechanical arrest, the distal anastomoses were performed and end-to-side anastomosis was made between vein and the posterolateral branch of the right coronary. Cold cardioplegia was given. The same segment of vein was [facility] [address] [place] [address] OPERATIVE REPORT Name: CRISABBIEMARC S Room #: 209-P [facility].#: [id number] Admission: 09/01/20 Attend Phys: Evans Ribeiro Discharge: 09/11/20 Date of : 54 Report #: [id number] sewn in end-to-side fashion to posterior descending artery because of a high-grade proximal posterior descending artery lesion. Cold cardioplegia was given. Separate segment of vein was sewn in end-to-side fashion to the large intramyocardial ramus intermedius. Cold cardioplegia was given. The same segment of vein was sewn in end-to-side fashion to the first diagonal. Cold cardioplegia was given. The circumflex system had been inspected, but the circumflex branches themselves were small. Left internal mammary artery was sewn in end-to-side fashion to the left anterior descending artery. Patency of this vessel was checked with the temperature technique and the Doppler. Cold cardioplegia was given. Two proximal anastomoses were performed. When these were complete, warm retrograde cardioplegia was given followed by warm continuous blood to the coronary sinus. When this infusion was complete, the crossclamp was removed, de-airing maneuvers were performed. The anastomoses were inspected and found to be satisfactory. As the patient warmed, nice cardiac activity resumed, chest tubes and pacing wires were placed. A marker was placed around the proximal anastomoses. When the patient was warmed, he was weaned from cardiopulmonary bypass. Venous cannula was removed. Protamine was given, the aortic cannula was removed. Flows were measured in the bypass grafts. When hemostasis was satisfactory, chest was irrigated with antibiotic solution and closed in the usual fashion. It should be mentioned that early in the case, a right femoral arterial line was placed because of lack of confidence in the right radial artery in the setting of subclavian stenosis. All counts reported as correct. The patient was taken to the intensive care in good condition having tolerated the procedure well. <ELECTRONICALLY SIGNED> By: Sly Del Cid MD 09/12/20919 36 56 Sly Del Cid MD /nt
== END 2020-09-11 15:54 | disposition home or self-care (01) | DRG 235 ==
LOC: CATH 09:10 → 2N 19:01 → ICU 09-06 12:32 → 2N 09-09 07:59
PROVIDERS: Nurse Practitioner; Nurse Practitioner Adult Health; Physician Assistant; Surgery Vascular Surgery; ADMIT Internal Medicine; ATTEND Internal Medicine
DX: I25.110 Atherosclerotic heart disease of native coronary artery with unstable angina pectoris (principal); G93.41 Metabolic encephalopathy; I69.351 Hemiplegia and hemiparesis following cerebral infarction affecting right dominant side; I10 Essential (primary) hypertension; I73.9 Peripheral vascular disease, unspecified; G47.00 Insomnia, unspecified; J45.909 Unspecified asthma, uncomplicated; J44.9 Chronic obstructive pulmonary disease, unspecified; I70.8 Atherosclerosis of other arteries; I35.0 Nonrheumatic aortic (valve) stenosis; I65.21 Occlusion and stenosis of right carotid artery; K57.90 Diverticulosis of intestine, part unspecified, without perforation or abscess without bleeding; E78.5 Hyperlipidemia, unspecified; Z20.822 Contact with and (suspected) exposure to COVID-19; Z82.49 Family history of ischemic heart disease and other diseases of the circulatory system; Z71.6 Tobacco abuse counseling; Z88.8 Allergy status to other drugs, medicaments and biological substances; Z79.899 Other long term (current) drug therapy
CPT/HCPCS: 10078; 10081; 47000; 47001; 47002; 47297; 47382; 50010; 50249; 50409; 50456; 50498; 50643; 50668; 50953; 51301; 52131; 52259; 52287; 52314; 53327; 54118; 56455; 56524; 56525; 56526; 56527; 56528; 56531; 56534; 56668; 56719; 56760; 56898; 57093; 57167; 57242; 62110; 62950; 65003; 65020; 65047; 65090; 65120; 83006

== ENCOUNTER 2020-09-13 10:03 | Emergency (ER) | payer OTHER ==
[~2020-09-13] VITALS: Ht 172.7 cm; Wt 59.0 kg
[~2020-09-13 10:03] MED LIST: ANORO ELLIPTA1 EACH INH; ASA81BEC PO; DESYREL150 MG PO; FERREX 150 PLU1 EAC1 PO; IBUPROFEN 800800 M1 PO; ISOSORBIDE DINI30 MG PO; LIPITOR40 MG PO; METOPROLOL TART25 MG PO; MUPIROCIN22 GM NASAL; NORCO 10-325 T1 EACH PO; NORVASC 2.5 MG2.5 M1 PO; PROAIR HFA8.5 GM INH
[2020-09-13 12:30] VITALS: BP 183/110
== END 2020-09-13 12:30 | disposition home or self-care (01) ==
LOC: ER 10:03
DX: Z48.01 Encounter for change or removal of surgical wound dressing (principal); Z87.442 Personal history of urinary calculi; Z79.899 Other long term (current) drug therapy; Z79.82 Long term (current) use of aspirin; Z88.8 Allergy status to other drugs, medicaments and biological substances